=== PATIENT | female | born 1955 | race Two or more races ===

== ENCOUNTER 2020-10-08 | Outpatient (CLI) | payer OTHER ==
[~2020-10-08] MED LIST: FLEXERIL10 MG PO
== END 2020-10-08 10:34 | disposition home or self-care (01) ==
LOC: PPH VACUNA
DX: Z23 Encounter for immunization (principal)

== ENCOUNTER 2021-10-17 12:07 | Outpatient (CLI) | payer OTHER ==
[~2021-10-17 12:07] MED LIST changes: +DICLOFENAC POTA50 MG PO; +DOLOGESIC 500-1 EACH PO
== END 2021-10-17 12:08 | disposition home or self-care (01) ==
LOC: RAD 12:07
DX: M54.50 Low back pain, unspecified (principal); M25.561 Pain in right knee

== ENCOUNTER 2022-01-30 11:35 | Emergency (ER) | payer OTHER ==
[~2022-01-30] VITALS: Ht 167.6 cm; Wt 55.8 kg
[~2022-01-30 11:35] MED LIST changes: +DEPO-MEDRO40 MG/1 ML IJ; +LIDOCAINE IJ
== END 2022-01-30 12:45 | disposition home or self-care (01) ==
LOC: ER 11:35
DX: F41.9 Anxiety disorder, unspecified (principal); Z88.6 Allergy status to analgesic agent

== ENCOUNTER 2022-03-13 13:47 | Outpatient (CLI) | payer OTHER ==
[~2022-03-13 13:47] MED LIST changes: +PEPCID20 MG PO
== END 2022-03-13 14:02 | disposition home or self-care (01) ==
LOC: SONOGRAMA 13:47
PROVIDERS: ATTEND Internal Medicine
DX: J91.8 Pleural effusion in other conditions classified elsewhere (principal)

== ENCOUNTER → 2022-03-18 13:43 | Outpatient (CLI) | payer OTHER | END | disposition home or self-care (01) | LOC: LAB 13:43 | PROVIDERS: ATTEND Internal Medicine | DX: U07.1 COVID-19 (principal); B34.1 Enterovirus infection, unspecified ==

== ENCOUNTER 2022-03-20 08:19 | Outpatient (CLI) | payer OTHER | END 2022-03-20 08:24 | disposition home or self-care (01) | LOC: NUCLEAR 08:19 | PROVIDERS: ATTEND Internal Medicine Cardiovascular Disease | DX: I34.0 Nonrheumatic mitral (valve) insufficiency (principal); I48.91 Unspecified atrial fibrillation ==

== ENCOUNTER 2022-05-01 08:01 | Outpatient (CLI) | payer OTHER | END 2022-05-01 08:02 | disposition home or self-care (01) | LOC: NUCLEAR 08:01 | PROVIDERS: ATTEND Internal Medicine Cardiovascular Disease | DX: I72.4 Aneurysm of artery of lower extremity (principal); Z88.6 Allergy status to analgesic agent ==

== ENCOUNTER 2023-05-11 12:33 | Outpatient (CLI) | payer OTHER ==
[~2023-05-11 12:33] MED LIST changes: +LIDODERM1 EACH TOP
== END 2023-05-11 14:15 | disposition home or self-care (01) ==
LOC: RAD 12:33
PROVIDERS: ATTEND General Practice
DX: R07.1 Chest pain on breathing (principal); J18.9 Pneumonia, unspecified organism; Z88.6 Allergy status to analgesic agent

== ENCOUNTER 2024-01-21 09:55 | Outpatient (CLI) | payer OTHER | END 2024-01-21 10:10 | disposition home or self-care (01) | LOC: MAMO-SONO 09:55 | PROVIDERS: ATTEND Obstetrics & Gynecology | DX: N60.09 Solitary cyst of unspecified breast (principal); Z12.31 Encounter for screening mammogram for malignant neoplasm of breast ==

== ENCOUNTER 2024-02-28 15:40 | Outpatient (CLI) | payer OTHER | END 2024-02-28 15:48 | disposition home or self-care (01) | LOC: RAD 15:40 | DX: M54.2 Cervicalgia (principal); M54.16 Radiculopathy, lumbar region ==

== ENCOUNTER 2024-08-09 15:27 | Outpatient (CLI) | payer OTHER | END 2024-08-09 15:33 | disposition home or self-care (01) | LOC: RAD 15:27 | PROVIDERS: ATTEND Internal Medicine | DX: M17.0 Bilateral primary osteoarthritis of knee (principal) ==

== ENCOUNTER 2024-08-10 12:58 | Outpatient (CLI) | payer OTHER | END 2024-08-10 13:04 | disposition home or self-care (01) | LOC: MRI 12:58 | PROVIDERS: ATTEND Internal Medicine | DX: M25.561 Pain in right knee (principal); M25.562 Pain in left knee | CPT/HCPCS: 73721 ==

== ENCOUNTER 2024-09-11 13:49 | Outpatient (CLI) | payer OTHER | END 2024-09-11 13:50 | disposition home or self-care (01) | LOC: NUCLEAR 13:49 | PROVIDERS: ATTEND Internal Medicine | DX: M81.0 Age-related osteoporosis without current pathological fracture (principal) ==

== ENCOUNTER 2025-01-25 14:24 | Outpatient (CLI) | payer OTHER | END 2025-01-25 14:27 | disposition home or self-care (01) | LOC: MAMO-SONO 14:24 | PROVIDERS: ATTEND Obstetrics & Gynecology | DX: N60.09 Solitary cyst of unspecified breast (principal) ==